=== PATIENT | female | born 1990 | race African-American/Black ===

== ENCOUNTER 2019-04-09 19:00 | Emergency (ER) | payer OTHER ==
--- NOTE | 2019-04-09 19:40 | PDOC ---
Rapid Medical Evaluation Time Seen by Provider: 04/09/19 19:36 Medical Evaluation: 04/09/19 19:36 I performed a brief in-person evaluation of this patient. Healthy 28-year-old female with multiple complaints including fatigue, nausea/ vomiting, dizziness,headache, cough, "bump" in right axilla, intermittent rashes. LMP 02/10. Pertinent physical exam findings. RRR, S1/S2 Lungs CTAB I have ordered the following: Urine Patient to proceed to ED for further evaluation. Discharge Disposition - Diagnosis Vomiting - Referrals - Patient Instructions - Post Discharge Activity
[2019-04-09 19:41] VITALS: BMI 32.5
--- NOTE | 2019-04-09 20:45 | PDOC ---
History of Present Illness - General Chief Complaint: Nausea/Vomiting Stated Complaint: NAUSEA/VOMITTING/ARM PAIN Time Seen by Provider: 04/09/19 19:36 History Source: Patient - History of Present Illness Initial Comments: 04/09/19 20:59 28 year old female reports nausea/ vomiting, dizziness, feels less energetic. patient reports acid burning and epigastric pain x 2 weeks. patient is unsure if she is . denies vaginal bledding discharge or urinary symptoms. NO pmhx Past History - Past Medical History Allergies/Adverse Reactions: Allergies Allergy/AdvReac Type Severity Reaction Status Date / Time No Known Allergies Allergy Verified 04/09/19 19:44 Home Medications: Ambulatory Orders Doxylamine Succinate/Vit B6 [Jose Andino 10-10 mg Tablet] 1 each PO HS PRN #30 tablet. 04/09/19 95/Iron Fum/Folic/Dha [ + Dha Combo Pack] 1 each PO DAILY #1 combo..pkg 04/09/19 COPD: No - Psycho Social/Smoking Cessation Hx Smoking History: Former smoker Have you smoked in the past 12 months: Yes Information on smoking cessation initiated: Yes Hx Alcohol Use: No Drug/Substance Use Hx: No Review of Systems - Review of Systems Able to Perform ROS?: Yes Is the patient limited [place]i proficient: No Constitutional: No: Symptoms Reported, See HPI, Chills, Diaphoresis, Fever, Loss of Appetite, Malaise, Night Sweats, Weakness, Weight Stable, Unintentional Wgt. Loss, Unexplained wgt Loss, Other ABD/GI: Yes: Nausea, Vomiting, Other (epigastric pain) *Physical Exam - Vital Signs Last Vital Signs Temp Pulse Resp BP Pulse Ox 98.1 F 87 18 120/82 98 04/09/19 19:37 04/09/19 19:37 04/09/19 19:37 04/09/19 19:37 04/09/19 19:37 - Physical Exam General Appearance: Yes: Appropriately Dressed Respiratory/Chest: positive: Lungs Clear, Normal Breath Sounds. negative: Chest Tender Cardiovascular: positive: Regular Rhythm, Regular Rate Gastrointestinal/Abdominal: positive: Normal Bowel Sounds, Tender (epigastric area), Soft Extremity: positive: Other (edema to right axilla ( lipoma?) no fluctuant mass) Integumentary: positive: Normal Color, Dry, Warm Neurologic: positive: Fully Oriented, Alert ED Treatment Course - LABORATORY CBC & Chemistry Diagram: 04/09/19 21:25 Medical Decision Making - Medical Decision Making 04/09/19 21:07 A: nausea and vomiting P: cbc cmp ua urine pregnnacy beta hcg IVF 04/09/19 22:38 twin IUp with + FHRT Discharge - Discharge Information Problems reviewed: Yes Clinical Impression/Diagnosis: Nausea and vomiting during Twin in first trimester Qualifiers: Multiple gestation type: unspecified Qualified Code(s): O30.001 - Twin , unspecified number of placenta and unspecified number of amniotic sacs, first trimester Disposition: HOME - Additional Discharge Information Prescriptions: Doxylamine Succinate/Vit B6 [Jose Andino 10-10 mg Tablet] 1 each PO HS PRN #30 tablet. PRN Reason: Nausea 95/Iron Fum/Folic/Dha [ + Dha Combo Pack] 1 each PO DAILY #1 combo..pkg - Follow up/Referral - Patient Discharge Instructions Patient Printed Discharge Instructions: Common Discomforts and Bodily Changes During Additional Instructions: drink plenty of fluids. take diclegis as prescribed for nausea take vitamins daily follow up with a ob/ florist as soon as possible. - Post Discharge Activity Work/Back to School Note: Back to Work
[2019-04-09] MEDS ORDERED: ONDANSETRON *ODT* 4 MG TABLET SL ONE (21:05)
[2019-04-09] MEDS ORDERED: SODIUM CHLORIDE 0.9% 500 ML INFUS.BAG IV ONE (21:06)
[2019-04-09] MEDS ORDERED: ONDANSETRON 4 MG/2 ML VIAL IVPB ONE (21:06)
[2019-04-09] MEDS ORDERED: ONDANSETRON 4 MG/2 ML VIAL ONE (21:28)
[2019-04-09 21:39] LABS: EPI CELLS 22.6 /HPF (0-5/HPF); HYALINE CASTS 21 /lpf (0-8); URINE APPEARANCE CLOUDY; URINE BACTERIA >9000 /hpf (NEGATIVE); URINE BILIRUBIN NEGATIVE (NEGATIVE); URINE COLOR YELLOW; URINE GLUCOSE (UA) NEGATIVE (NEGATIVE); URINE KETONE 1+ (NEGATIVE); URINE LEUK ESTERASE TRACE (NEGATIVE); URINE NITRITE POSITIVE (NEGATIVE); URINE PROTEIN TRACE (NEGATIVE); URINE RBC 1 /hpf (0-4); URINE WBC 9 /hpf (0-5)
[2019-04-09] MEDS ORDERED: CEPHALEXIN MONOHYDRATE 500 MG CAPSULE (UD) PO ONE (21:43)
[2019-04-09 21:47] LABS: HEMATOCRIT 35.7 % (32.4-45.2); HEMOGLOBIN 12.3 GM/dL (10.7-15.3); MCH 31.7 pg (25.7-33.7); MCHC 34.3 g/dl (32.0-36.0); MEAN CELL VOLUME 92.5 fl (80-96); MEAN PLT VOLUME 7.9 fl (7.5-11.1); PLATELET COUNT 266 K/MM3 (134-434); RBC 3.87 M/mm3 (3.60-5.2); RDW 13.3 % (11.6-15.6); WHITE BLOOD COUNT 11.5 K/mm3 (4.0-10.0)
[2019-04-09] MEDS ORDERED: CEPHALEXIN MONOHYDRATE 500 MG CAPSULE (UD) ONE (22:00)
[2019-04-09 23:32] VITALS: BP 118/69; PULSE 94; TEMP 98
== END 2019-04-09 23:32 | disposition home or self-care (01) ==
LOC: JER 19:00
PROC: 3E033GC Introduction of Other Therapeutic Substance into Peripheral Vein, Percutaneous Approach (ICD-10-PCS; principal; 2019-04-09)
DX: O26.891 Other specified pregnancy related conditions, first trimester (principal); O30.001 Twin pregnancy, unspecified number of placenta and unspecified number of amniotic sacs, first trimester; O21.9 Vomiting of pregnancy, unspecified; Z3A.00 Weeks of gestation of pregnancy not specified
CPT/HCPCS: 36415; 76801-TC; 81003; 84702; 84703; 85027; 96374; 99284-25

== ENCOUNTER 2022-04-06 16:38 | Emergency (ER) | payer OTHER ==
[2022-04-06 16:56] VITALS: BP 115/57; PULSE 76; RESP 20; TEMP 98.4; BMI 33.4
[2022-04-06] MEDS ORDERED: DEXAMETHASONE SOD PHOSPHATE 10 MG/1 ML VIAL IVPUSH ONE (17:53)
[2022-04-06] MEDS ORDERED: KETOROLAC TROMETHAMINE 30 MG/1 ML VIAL IVPUSH ONE (17:53)
[2022-04-06 18:33] LABS: BASO % 0.6 % (0-2.0); EOS % 2.3 % (0-4.5); HEMATOCRIT 40.2 % (32.4-45.2); HEMOGLOBIN 13.2 GM/dL (10.7-15.3); LYMPH % 39.7 % (8-40); MCH 30.2 pg (25.7-33.7); MCHC 32.8 g/dl (32.0-36.0); MEAN PLT VOLUME 7.7 fl (7.5-11.1); NEUT % 51.4 % (42.8-82.8); PLATELET COUNT 328 10^3/uL (134-434); RBC 4.37 M/mm3 (3.60-5.2); RDW 13.1 % (11.6-15.6); WHITE BLOOD COUNT 8.3 K/mm3 (4.0-10.0)
[2022-04-06 18:36] LABS: EPI CELLS >36 /uL (0-25.1); HCG,QUALITATIVE URINE Negative; HYALINE CASTS 1 /uL (0-3.1); PH,URINE 5.5 (5.0-8.0); URINE APPEARANCE CLOUDY; URINE BACTERIA 963 /uL (0-1359); URINE BILIRUBIN NEGATIVE (NEGATIVE); URINE COLOR YELLOW; URINE GLUCOSE (UA) NEGATIVE (NEGATIVE); URINE KETONE NEGATIVE (NEGATIVE); URINE LEUK ESTERASE TRACE (NEGATIVE); URINE NITRITE NEGATIVE (NEGATIVE); URINE PROTEIN NEGATIVE (NEGATIVE); URINE RBC 12 /uL (0-23.9); URINE UROBILINOGEN 0.2 mg/dL (0.2-1.0); URINE WBC 64 /uL (0-25.8)
[2022-04-06 19:17] LABS: ALBUMIN 3.6 g/dl (3.4-5.0); BILIRUBIN,TOTAL 0.8 mg/dL (0.2-1); BLOOD UREA NITROGEN 13.5 mg/dL (7-18); CALCIUM 9.3 mg/dL (8.5-10.1); CREATININE 0.8 mg/dL (0.55-1.3); TOT PROT 7.1 g/dl (6.4-8.2)
[2022-04-06] MEDS ORDERED: DEXAMETHASONE SOD PHOSPHATE 10 MG/1 ML VIAL ONE (19:17)
[2022-04-06] MEDS ORDERED: KETOROLAC TROMETHAMINE 30 MG/1 ML VIAL ONE (19:17)
[2022-04-06] MEDS ORDERED: PENICILLIN G BENZATHINE 1,200,000 UNIT/2 ML PFS IM ONE ×2 (19:44→19:45)
== END 2022-04-06 20:19 | disposition home or self-care (01) ==
LOC: JERFT 16:38
PROC: 3E023GC Introduction of Other Therapeutic Substance into Muscle, Percutaneous Approach (ICD-10-PCS; principal; 2022-04-06)
PROC: 3E033GC Introduction of Other Therapeutic Substance into Peripheral Vein, Percutaneous Approach (ICD-10-PCS; principal; 2022-04-06)
DX: J02.0 Streptococcal pharyngitis (principal); R10.30 Lower abdominal pain, unspecified
CPT/HCPCS: 36415; 80053; 81003; 84443; 84703; 85025; 87086; 87651; 99284-25; J1100

== ENCOUNTER 2023-12-27 11:48 | Emergency (ER) | payer OTHER ==
[2023-12-27 12:02] VITALS: BP 124/77; PULSE 77; RESP 18; TEMP 98.3; BMI 35.1
[2023-12-27 13:15] LABS: PH,URINE 5.5 (5.0-8.0); URINE APPEARANCE CLEAR; URINE BILIRUBIN NEGATIVE (NEGATIVE); URINE COLOR YELLOW; URINE GLUCOSE (UA) NEGATIVE (NEGATIVE); URINE KETONE NEGATIVE (NEGATIVE); URINE LEUK ESTERASE NEGATIVE (NEGATIVE); URINE NITRITE NEGATIVE (NEGATIVE); URINE PROTEIN NEGATIVE (NEGATIVE)
[2023-12-27] MEDS ORDERED: ACETAMINOPHEN INJECTION 100 ML ONE (13:23)
[2023-12-27] MEDS: SODIUM CHLORIDE 0.9% 500 ML INFUS.BAG IV ONE (13:27)
[2023-12-27] MEDS: ACETAMINOPHEN 1000 MG/100 ML BAG IVPB ONE (13:27)
[2023-12-27 13:37] LABS: BASO % 0.5 % (0-2.0); HEMATOCRIT 37.9 % (32.4-45.2); HEMOGLOBIN 12.8 GM/dL (10.7-15.3); LYMPH % 33.8 % (8-40); MCH 31.2 pg (25.7-33.7); MCHC 33.7 g/dl (32.0-36.0); MEAN CELL VOLUME 92.5 fl (80-96); MEAN PLT VOLUME 7.7 fl (7.5-11.1); MONO % 6.4 % (3.8-10.2); NEUT % 57.3 % (42.8-82.8); PLATELET COUNT 290 10^3/uL (134-434); RDW 12.9 % (11.6-15.6)
[2023-12-27 13:52] LABS: CALCIUM 9.4 mg/dL (8.5-10.1)
[2023-12-27 13:53] LABS: ALBUMIN 3.4 g/dl (3.4-5.0)
[2023-12-27 13:55] LABS: CREATININE 0.8 mg/dL (0.55-1.3)
[2023-12-27 13:56] LABS: BLOOD UREA NITROGEN 7.8 mg/dL (7-18)
[2023-12-27 13:57] LABS: TOT PROT 6.6 g/dl (6.4-8.2)
[2023-12-27 14:27] LABS: INR 0.93 (0.83-1.09); PROTHROMBIN TIME (PATIENT) 10.7 SEC (9.7-13.0)
== END 2023-12-27 17:22 | disposition home or self-care (01) ==
LOC: JER 11:48
PROC: 3E033NZ Introduction of Analgesics, Hypnotics, Sedatives into Peripheral Vein, Percutaneous Approach (ICD-10-PCS; principal; 2023-12-27)
DX: O26.891 Other specified pregnancy related conditions, first trimester (principal); R10.32 Left lower quadrant pain; Z3A.10 10 weeks gestation of pregnancy
CPT/HCPCS: 36415; 76817-TC; 80053; 81003; 84702; 85025; 85610; 85730; 86850; 86900; 86901; 87086; 96374; 99284-25; J0131

== ENCOUNTER 2023-12-29 20:49 | Emergency (ER) | payer OTHER ==
[2023-12-29 21:01] VITALS: BP 129/88; PULSE 80; RESP 18; TEMP 98.2; BMI 32.5
== END 2023-12-29 22:59 | disposition home or self-care (01) ==
LOC: JERFT 20:49 → JER 20:49 → JERFT 22:59
DX: O02.1 Missed abortion (principal)
CPT/HCPCS: 36415; 76817-TC; 84702; 99284-25

== ENCOUNTER 2024-01-07 01:54 | Emergency (ER) | payer OTHER ==
[2024-01-07 02:10] VITALS: RESP 24; TEMP 97.3; BMI 34.0
[2024-01-07] MEDS ORDERED: ACETAMINOPHEN INJECTION 100 ML ONE (02:14)
[2024-01-07] MEDS: ACETAMINOPHEN 1000 MG/100 ML BAG IVPB ONE (02:31)
[2024-01-07] MEDS ORDERED: ONDANSETRON 4 MG/2 ML VIAL ONE (02:37)
[2024-01-07 02:39] LABS: BASO % 0.8 % (0-2.0); EOS % 1.1 % (0-4.5); HEMATOCRIT 37.3 % (32.4-45.2); HEMOGLOBIN 12.5 GM/dL (10.7-15.3); LYMPH % 22.7 % (8-40); MCHC 33.6 g/dl (32.0-36.0); MEAN CELL VOLUME 92.3 fl (80-96); MEAN PLT VOLUME 7.8 fl (7.5-11.1); NEUT % 71.4 % (42.8-82.8); PLATELET COUNT 273 10^3/uL (134-434); RBC 4.04 M/mm3 (3.60-5.2); RDW 12.6 % (11.6-15.6); WHITE BLOOD COUNT 10.9 K/mm3 (4.0-10.0)
[2024-01-07 02:43] LABS: INR 0.95 (0.83-1.09); PROTHROMBIN TIME (PATIENT) 10.8 SEC (9.7-13.0)
[2024-01-07 02:46] LABS: ACTIVATED PTT 26.9 SECONDS (25.2-36.5)
[2024-01-07 02:56] LABS: CHLORIDE 106 mmol/L (98-107); POTASSIUM 3.6 mmol/L (3.5-5.1); SODIUM 140 mmol/L (136-145)
[2024-01-07 02:58] LABS: ALBUMIN 3.6 g/dl (3.4-5.0); ANION GAP 10 mmol/L (4-13); BLOOD UREA NITROGEN 7.6 mg/dL (7-18); CALCIUM 9.2 mg/dL (8.5-10.1); CO2 24 mmol/L (21-32); MAGNESIUM 1.9 mg/dL (1.8-2.4)
[2024-01-07 02:59] LABS: GLUCOSE,RANDOM 150 mg/dL (74-106)
[2024-01-07 03:01] LABS: SGOT/AST 16 U/L (15-37); SGPT/ALT 28 U/L (13-61)
[2024-01-07 03:02] LABS: CREATININE 0.8 mg/dL (0.55-1.3)
[2024-01-07 03:03] LABS: BILIRUBIN,TOTAL 0.7 mg/dL (0.2-1); TOT PROT 6.7 g/dl (6.4-8.2)
[2024-01-07 03:04] LABS: ALK PHOS 52 U/L (45-117)
[2024-01-07] MEDS: ONDANSETRON 4 MG/2 ML VIAL IVPUSH ONE (03:15)
[2024-01-07 03:38] VITALS: BP 126/70; PULSE 80
[2024-01-07] MEDS ORDERED: IBUPROFEN 600 MG TABLET (FP) PO ONE (09:41)
[2024-01-07] MEDS: IBUPROFEN 600 MG TABLET (FP) PO ONE (09:44)
[2024-01-07] MEDS: MISOPROSTOL 200 MCG TABLET PO ONE (11:28)
== END 2024-01-07 12:48 | disposition home or self-care (01) ==
LOC: JER 01:54
PROC: 3E033NZ Introduction of Analgesics, Hypnotics, Sedatives into Peripheral Vein, Percutaneous Approach (ICD-10-PCS; principal; 2024-01-07)
PROC: 3E033GC Introduction of Other Therapeutic Substance into Peripheral Vein, Percutaneous Approach (ICD-10-PCS; 2024-01-07)
DX: O03.9 Complete or unspecified spontaneous abortion without complication (principal)
CPT/HCPCS: 36415; 76817-TC; 80053; 83735; 84702; 85025; 85610; 85730; 86850; 86900; 86901; 88305-TC; 99284-25; J0131